=== PATIENT | female | born 1985 | race Caucasian/White ===

== ENCOUNTER 2019-02-13 19:33 | Emergency (ER) | payer MEDICAID ==
[~2019-02-13] VITALS: Ht 149.9 cm; Wt 63.0 kg
[~2019-02-13 19:33] MED LIST: FERR-212 PO; IBUP-2213 PO; PREN-508 PO
[2019-02-13 19:45] VITALS: BP 131/62
--- NOTE | 2019-02-13 20:08 | NUR ---
PT AMBULATED TO THE RESTROOM AND THEN TO [facility]
--- NOTE | 2019-02-13 20:36 | NUR ---
PT AMBULATED TO ER BED 01
--- NOTE | 2019-02-13 20:52 | NUR ---
US AT BEDSIDE.
--- NOTE | 2019-02-13 20:55 | NUR ---
33 YO F BIB SELF PRESENTS TO ED C/O VAGINAL BLEEDING WITH BLOOD CLOTS X 1 HOUR. HAS CHANGED PAD X 1. LOWER CRAMPING 7/10 ABD PAIN X 30 MINS. PT IS 15 WEEKS . DENIES HX OF MISCARRIAGE. . -- PT AWAKE, A/O X4, CALM, COOPERATIVE. ANSWERS QUESTIONS IN CLEAR, COMPLETE SENTENCES. BEHAVIOR AGE APPROPRIATE. -- SKIN PINK, WARM, DRY. BREATHING EVEN, UNLABORED. PMH-- DENIES RX-- FOLIC ACID LMP-- 05/19/18
--- NOTE | 2019-02-13 21:29 | NUR ---
DR. HARDY EVALUATING AT BEDSIDE.
[2019-02-13 21:42] LABS: HEMATOCRIT 34.6 % (36-48); HEMOGLOBIN 11.5 g/dL (12.0-16.0); MEAN CORPUSCULAR HEMOGLOBIN 28 pg (27-31); MEAN CORPUSCULAR HGB CONC 33 g/dL (33-37); MEAN CORPUSCULAR VOLUME 83.4 fL (80-94); PLATELET COUNT (AUTO) 269 K/uL (140-450); RED BLOOD CELL COUNT(AUTO) 4.15 MIL/uL (4.20-5.40); RED CELL DISTRIBUTION WIDTH 12.9 % (11.6-13.7); WHITE BLOOD COUNT (AUTO) 10.3 K/uL (4.8-10.8)
[2019-02-13 21:56] LABS: ANION GAP 15.2 (8-16); CARBON DIOXIDE 23.2 mmol/L (21-32); CREATININE 0.5 mg/dL (0.6-1.3); POTASSIUM 3.4 mmol/L (3.5-5.1)
[2019-02-13 22:02] LABS: ALBUMIN 3.7 g/dL (3.4-5.0); TOTAL BILIRUBIN 0.2 mg/dL (0.0-1.0)
[2019-02-13 22:14] LABS: APPEARANCE,URINE CLEAR (CLEAR); BILIRUBIN,URINE NEGATIVE (NEGATIVE); BLOOD, URINE 3+ (NEGATIVE); COLOR,URINE YELLOW (YELLOW); LEUKOCYTE ESTERASE ,URINE TRACE (NEGATIVE); NITRITE, URINE POSITIVE (NEGATIVE); PH,URINE 6.5 (5.0-9.0); UGLUCOSE NEGATIVE (NEGATIVE)
[2019-02-13 22:19] LABS: EOSINOPHILS % (MANUAL) 1 % (0-4); LYMPHOCYTES % (MANUAL) 32 % (20-46); MONOCYTES % (MANUAL) 5 % (5-12)
--- NOTE | 2019-02-13 22:35 | NUR ---
Female Sales Service Technician accompanied Dr. Chaudhary for female patient- Pelvic Exam.
[2019-02-13 22:54] LABS: RBC,URINE TOO NUMEROUS TO COUN /HPF (0-5); WBC,URINE 0-5 /HPF (0-5)
[2019-02-13] MEDS ORDERED: metroNIDAZOLE 250 MG TAB PO ONE (23:35)
--- NOTE | 2019-02-13 23:42 | NUR ---
PT SITTING WITH DAUGHTER ON BED LAUGHING, TALKING, WATCHING PHONE. VSS. SKIN PINK, WARM, DRY. BREATHING EVEN, UNLABORED. NO COMPLAINTS AT THIS TIME.
[2019-02-14 01:04] VITALS: BP 115/73
--- NOTE | 2019-02-14 01:04 | NUR ---
Patient discharged with v/s stable. Written and verbal after care instructions given and explained. Patient alert, oriented and verbalized understanding of instructions. Ambulatory with steady gait. All questions addressed prior to discharge. ID band removed. Patient advised to follow up with PMD. Rx of FLAGYL given. Patient educated on indication of medication including possible reaction and side effects. Opportunity to ask questions provided and answered.
[2019-02-16 06:07] LABS: CHLAMYDIA TRACHOMATIS AMP DNA Negative (Negative)
== END 2019-02-14 01:04 | disposition home or self-care (01) ==
LOC: MED 19:33
DX: O20.8 Other hemorrhage in early pregnancy (principal); O23.591 Infection of other part of genital tract in pregnancy, first trimester; B96.89 Other specified bacterial agents as the cause of diseases classified elsewhere; Z79.899 Other long term (current) drug therapy; Z3A.13 13 weeks gestation of pregnancy
CPT/HCPCS: 36415; 76817; 80053; 81001; 84702; 85025; 86900; 86901; 87210; 99284; Q0092; 87491

== ENCOUNTER 2019-04-10 14:08 | Emergency (ER) | payer MEDICAID ==
[~2019-04-10] VITALS: Ht 142.2 cm; Wt 63.5 kg
[2019-04-10 14:18] VITALS: BP 115/57
--- NOTE | 2019-04-10 14:18 | NUR ---
33/F PRESENTS TO ED, C/O COUGH, PLEURITIC CP AND BACK PAIN, X6 DAYS. PT REPORTS BEING 19 WEEKS . A0. PT AWAKE AND ALERT, SKIN NORMAL COLOR WARM AND DRY, RR EVEN AND UNLABORED. LUNG SOUNDS CLEAR BL. DENIES MED HX OR RX. OTC VITAMINS.
--- NOTE | 2019-04-10 14:28 | NUR ---
PT AMBULATED TO BED WITH SON AND DAUGHTER
[2019-04-10 15:48] VITALS: BP 137/73
--- NOTE | 2019-04-10 15:48 | NUR ---
Patient discharged with v/s stable. Written and verbal after care instructions given and explained. Patient alert, oriented and verbalized understanding of instructions. Ambulatory with steady gait. All questions addressed prior to discharge. ID band removed. Patient advised to follow up with PMD. Rx of AZITHROMYCIN/DM COUGH given. Patient educated on indication of medication including possible reaction and side effects. Opportunity to ask questions provided and answered.
== END 2019-04-10 15:48 | disposition home or self-care (01) ==
LOC: MED 14:08
DX: O99.512 Diseases of the respiratory system complicating pregnancy, second trimester (principal); J20.9 Acute bronchitis, unspecified; Z3A.19 19 weeks gestation of pregnancy
CPT/HCPCS: 99283

== ENCOUNTER 2019-07-16 01:05 | Inpatient (IN) | payer MEDICAID ==
[~2019-07-16] VITALS: Ht 149.9 cm; Wt 69.9 kg
[2019-07-16] MEDS ORDERED: LACTATED RINGERS 1,000 ML IV SCH (01:46)
[2019-07-16 01:50] VITALS: BP 119/59
[2019-07-16] MEDS ORDERED: CARBOPROST 250 MCG/ML AMP IM PRN (01:50)
[2019-07-16] MEDS ORDERED: METHYLERGONOVINE 0.2 MG/ML AMP IM PRN (01:50)
[2019-07-16 02:42] LABS: BASOPHILS # (AUTO) 0.1 K/uL (0.00-0.22); BASOPHILS % (AUTO) 1.1 % (0.0-2.0); EOSINOPHILS # (AUTO) 0.1 K/uL (0-0.4); EOSINOPHILS % (AUTO) 1.4 % (0.0-4.0); HEMATOCRIT 31.7 % (36-48); HEMOGLOBIN 10.7 g/dL (12.0-16.0); LYMPHOCYTES # (AUTO) 2.7 K/uL (2.5-16.5); LYMPHOCYTES % (AUTO) 34.1 % (20.5-51.1); MEAN CORPUSCULAR HEMOGLOBIN 29 pg (27-31); MEAN CORPUSCULAR HGB CONC 34 g/dL (33-37); MEAN CORPUSCULAR VOLUME 84.8 fL (80-94); MONOCYTES # (AUTO) 0.5 K/uL (0.8-1.0); MONOCYTES % (AUTO) 6.4 % (1.7-9.3); NEUTROPHILS # (AUTO) 4.6 K/uL (1.8-7.7); PLATELET COUNT (AUTO) 220 K/uL (140-450); RED BLOOD CELL COUNT(AUTO) 3.73 MIL/uL (4.20-5.40); RED CELL DISTRIBUTION WIDTH 13.5 % (11.6-13.7)
[2019-07-16 02:43] LABS: APPEARANCE,URINE CLEAR (CLEAR); BILIRUBIN,URINE NEGATIVE (NEGATIVE); BLOOD, URINE 1+ (NEGATIVE); COLOR,URINE YELLOW (YELLOW); LEUKOCYTE ESTERASE ,URINE NEGATIVE (NEGATIVE); NITRITE, URINE NEGATIVE (NEGATIVE); PH,URINE 6.5 (5.0-9.0); UGLUCOSE NEGATIVE (NEGATIVE)
[2019-07-16 02:53] LABS: ANION GAP 14.8 (8-16); CARBON DIOXIDE 22.3 mmol/L (21-32); CREATININE 0.6 mg/dL (0.6-1.3); POTASSIUM 4.1 mmol/L (3.5-5.1)
[2019-07-16 02:58] LABS: ALBUMIN 2.7 g/dL (3.4-5.0); TOTAL BILIRUBIN 0.3 mg/dL (0.0-1.0)
[2019-07-16 03:05] LABS: RBC,URINE 11-20 (MOD) /HPF (0-5); WBC,URINE 0-5 /HPF (0-5)
[2019-07-16] MEDS ORDERED: ceFAZolin 1,000 MG VIAL ONE (05:34)
[2019-07-16] MEDS ORDERED: BETAMETH ACET/BETAMETH NA PH 30 MG/5 ML VIAL IM ONE (05:58)
[2019-07-16] MEDS ORDERED: CITRIC ACID/SODIUM CITRATE 30 ML UDC PO ONE (06:00)
[2019-07-16] MEDS ORDERED: BETAMETH ACET/BETAMETH NA PH 30 MG/5 ML VIAL IM SCH (06:05)
[2019-07-16] MEDS ORDERED: MAG SULF 2000 MG/WATER PREMIX 50 ML IV ONE (06:25)
[2019-07-16] MEDS ORDERED: AMPICILLIN 2,000 MG VIAL ONE (06:32)
[2019-07-16] MEDS ORDERED: MAG SULF IV ONE (06:33)
[2019-07-16] MEDS ORDERED: [UNRECOGNIZED DRUG - OTHER] IV ONE (06:33)
[2019-07-16] MEDS ORDERED: AZITHROMYCIN 500 MG in DEXTROSE 5% 250 ML IV SCH (07:00)
[2019-07-16] MEDS ORDERED: AZITHROMYCIN 500 MG INJ VIAL IV ONE (07:11)
[2019-07-16] MEDS ORDERED: AMPICILLIN 2,000 MG in NACL 0.9% 100 ML IV SCH (08:00)
[2019-07-16] MEDS ORDERED: ERYTHROMYCIN 0.5% OPTH OINT 1 GM TUBE ONE (09:18)
== END 2019-07-16 07:50 | disposition short-term general hospital (02) | DRG 566 ==
LOC: MLD 01:05 → OBSVTOIN 01:05
PROVIDERS: ADMIT Obstetrics & Gynecology; ATTEND Obstetrics & Gynecology
DX: O42.013 Preterm premature rupture of membranes, onset of labor within 24 hours of rupture, third trimester (principal); O24.410 Gestational diabetes mellitus in pregnancy, diet controlled; Z3A.33 33 weeks gestation of pregnancy; Z91.19 Patient's noncompliance with other medical treatment and regimen
CPT/HCPCS: 36415; 80053; 81001; 85025; 86592; 86886; 86900; 86901; 87086; J0290; J0456; J0690; J0702; J3475; J7030; J7060; J7120

== ENCOUNTER 2019-11-29 19:22 | Inpatient (IN) | payer MEDICAID ==
[~2019-11-29] VITALS: Ht 137.2 cm; Wt 69.5 kg
[~2019-11-29 19:22] MED LIST changes: -FERR-212 PO; -IBUP-2213 PO
[2019-11-29 19:33] VITALS: BP 137/98
--- NOTE | 2019-11-29 19:37 | NUR ---
AMBULATED TO BED 5 WITH STEADY GAIT.
[2019-11-29] MEDS ORDERED: NACL 0.9% 1,000 ML IV ONE (19:50)
[2019-11-29] MEDS ORDERED: KETOROLAC 15 MG/ML VIAL IVP ONE (19:50)
[2019-11-29 20:20] LABS: BASOPHILS % (AUTO) 0.2 % (0.0-2.0); EOSINOPHILS # (AUTO) 0.1 K/uL (0-0.4); EOSINOPHILS % (AUTO) 0.5 % (0.0-4.0); HEMATOCRIT 39.1 % (36-48); HEMOGLOBIN 12.6 g/dL (12.0-16.0); LYMPHOCYTES % (AUTO) 16.1 % (20.5-51.1); MEAN CORPUSCULAR HEMOGLOBIN 26 pg (27-31); MEAN CORPUSCULAR HGB CONC 32 g/dL (33-37); MEAN CORPUSCULAR VOLUME 80.7 fL (80-94); MONOCYTES # (AUTO) 0.5 K/uL (0.8-1.0); MONOCYTES % (AUTO) 3.8 % (1.7-9.3); NEUTROPHILS # (AUTO) 9.8 K/uL (1.8-7.7); NEUTROPHILS % (AUTO) 79.4 % (42.2-75.2); PLATELET COUNT (AUTO) 256 K/uL (140-450); RED BLOOD CELL COUNT(AUTO) 4.84 MIL/uL (4.20-5.40); RED CELL DISTRIBUTION WIDTH 13.7 % (11.6-13.7); WHITE BLOOD COUNT (AUTO) 12.3 K/uL (4.8-10.8)
[2019-11-29 20:28] LABS: ANION GAP 17.1 (8-16); CARBON DIOXIDE 23.3 mmol/L (21-32); CREATININE 0.8 mg/dL (0.6-1.3); POTASSIUM 3.4 mmol/L (3.5-5.1)
[2019-11-29 20:33] LABS: ALBUMIN 4.4 g/dL (3.4-5.0); TOTAL BILIRUBIN 0.4 mg/dL (0.0-1.0)
--- NOTE | 2019-11-29 20:48 | NUR ---
Pt recieved at 2009 with c/o RUQ stabbing pain with nausea and vomiting. 22G IV lock to right forearm. Ultrasound at bedside, awaiting UA for CT. IVF infusing with no S/Sx infiltration.
--- NOTE | 2019-11-29 22:28 | NUR ---
Pt to CT and returned with no complicationsPt reports decreased pain level at this time s/p pain medication. Pain at this time06/13. Orders recieved from Dr Waterman. Pt aware of and agrees with plan of care.
[2019-11-29] MEDS ORDERED: ONDANSETRON 4 MG/2 ML VIAL IVP PRN (22:35)
[2019-11-29] MEDS ORDERED: LACTATED RINGERS 1,000 ML IV ONE (22:35)
[2019-11-29] MEDS: DEXT 5% /NACL 0.9% 1,000 ML IV SCH (22:41)
[2019-11-29] MEDS ORDERED: ONDANSETRON 4 MG/2 ML VIAL IM/IVP PRN (22:45)
[2019-11-29] MEDS ORDERED: HYDROcodone/APAP 7.5/325 MG 1 TAB PO PRN (22:45)
[2019-11-29] MEDS ORDERED: POTASSIUM CHLORIDE 10 MEQ TABER PO PRN (22:45)
[2019-11-29] MEDS ORDERED: LEVOFLOXACIN 750 MG/D5W PREMIX 150 ML IV SCH (22:45)
[2019-11-29] MEDS ORDERED: DOCUSATE SODIUM 100 MG GELCAP PO PRN (22:45)
[2019-11-29] MEDS ORDERED: ACETAMINOPHEN 325 MG TAB PO PRN (22:45)
[2019-11-29 23:07] LABS: APPEARANCE,URINE CLOUDY (CLEAR); BILIRUBIN,URINE NEGATIVE (NEGATIVE); BLOOD, URINE NEGATIVE (NEGATIVE); COLOR,URINE YELLOW (YELLOW); LEUKOCYTE ESTERASE ,URINE NEGATIVE (NEGATIVE); NITRITE, URINE NEGATIVE (NEGATIVE); UGLUCOSE NEGATIVE (NEGATIVE)
[2019-11-29 23:32] LABS: PROTHROMBIN TIME 9.9 secs (10.8-13.4)
[2019-11-29 23:36] LABS: CHOL/HDL RATIO 4.1 (1-4.5); FREE T4 (FREE THYROXINE) 1.2 ng/dL (0.76-1.46); MAGNESIUM 1.9 mg/dL (1.8-2.4); PHOSPHORUS 2.5 mg/dL (2.5-4.9); THYROID STIMULATING HORMONE 0.3 uIU/mL (0.34-3.74)
--- NOTE | 2019-11-29 23:40 | NUR ---
Pt resting with no acute distress at this time. Will continue to monitor.
[2019-11-29 23:54] LABS: BARBITURATE, URINE NEGATIVE ng/ml (NEG <=200); BENZODIAZEPINE, URINE NEGATIVE ng/mL (NEG <=200); CANNABINOID, URINE NEGATIVE ng/mL (NEG <=50); COCAINE, URINE NEGATIVE ng/mL (NEG <=300); OPIATE, URINE NEGATIVE ng/mL (NEG <=2000); PHENCYCLIDINE SCREEN,URINE NEGATIVE ng/mL (NEG <=25)
--- NOTE | 2019-11-30 00:04 | NUR ---
Attempted to call after hour pharmacy to clarify ABX order [phone] passcode [id number]. Passcode [id number] invalid, preload supervisor notified of invalid passcode. Was advised by Tita SOTOphysical testing supervisor to start ABX as scheduled by both surgon and admit MD. Pt scheduled for 729 surgery, Dr Watermanordered Zosyn 3.375G IVPB Q6 hours, pharmacy schedules at 0000, 0600. Admitting MD Dr Rodriguez ordered Levaquin 750mg IVPB Q2Days, pharmacy schedules first dose at 2300 11-29-19.
[2019-11-30] MEDS ORDERED: PIPERACILLIN/TAZOBACTAM 3.375 GM VIAL IV ONE (00:33)
[2019-11-30] MEDS: PIPERACILLIN/TAZOBACTAM 3.375 GM in DEXTROSE 5% 50 ML IV SCH ×4 (00:51→18:19)
[2019-11-30] MEDS: HYDROmorphone PFS 2 MG/ML SYR IVP PRN ×3 (00:54→21:04)
--- NOTE | 2019-11-30 00:56 | NUR ---
Pt medicated for pain per MD order, see eMAR for details.
--- NOTE | 2019-11-30 02:39 | NUR ---
Pt resting with no acute distress noted, VSS, IV ABX infusing with no adverse reaction noted, will continue to monitor.
[2019-11-30 04:28] LABS: BASOPHILS % (AUTO) 0.2 % (0.0-2.0); EOSINOPHILS % (AUTO) 0.1 % (0.0-4.0); HEMATOCRIT 37.3 % (36-48); LYMPHOCYTES % (AUTO) 17.1 % (20.5-51.1); MEAN CORPUSCULAR HEMOGLOBIN 26 pg (27-31); MEAN CORPUSCULAR HGB CONC 32 g/dL (33-37); MEAN CORPUSCULAR VOLUME 81.6 fL (80-94); MONOCYTES # (AUTO) 1.1 K/uL (0.8-1.0); MONOCYTES % (AUTO) 9.5 % (1.7-9.3); NEUTROPHILS # (AUTO) 8.7 K/uL (1.8-7.7); NEUTROPHILS % (AUTO) 73.1 % (42.2-75.2); PLATELET COUNT (AUTO) 229 K/uL (140-450); RED BLOOD CELL COUNT(AUTO) 4.57 MIL/uL (4.20-5.40); RED CELL DISTRIBUTION WIDTH 13.5 % (11.6-13.7); WHITE BLOOD COUNT (AUTO) 11.9 K/uL (4.8-10.8)
[2019-11-30 04:47] LABS: ANION GAP 16.7 (8-16); CARBON DIOXIDE 25.2 mmol/L (21-32); CREATININE 0.8 mg/dL (0.6-1.3); POTASSIUM 3.9 mmol/L (3.5-5.1)
--- NOTE | 2019-11-30 05:09 | NUR ---
Pt ambulated to BR with steady gait, c/o pain8/, pt medicated per MD order, see eMAR for details.
[2019-11-30] MEDS ORDERED: BUPIVACAINE-MPF 0.25% 30 ML VIAL INJ ONE (07:07)
--- NOTE | 2019-11-30 07:20 | NUR ---
REPORT RECEIVED FROM BOBBI SOTO, TRANSFER OF CARE AT THIS TIME
--- NOTE | 2019-11-30 07:20 | NUR ---
PT RESTING WITH EYES CLOSED, BREATHING EVEN AND UNLABORED. NO DISTRESS NOTED. WILL CONTINUE TO MONITOR.
--- NOTE | 2019-11-30 07:33 | NUR ---
OR TEAM HAS TAKEN PT.
[2019-11-30] MEDS ORDERED: ROCURONIUM 50 MG/5 ML VIAL IV ONE (07:37)
[2019-11-30] MEDS ORDERED: SUCCINYLCHOLINE CHLORIDE 200 MG/10 ML VIAL IVP ONE (07:37)
[2019-11-30] MEDS ORDERED: HYDROmorphone PFS 2 MG/ML SYR ONE (07:37)
[2019-11-30] MEDS ORDERED: DEXAMETHASONE 4 MG/ML VIAL ONE (07:37)
[2019-11-30] MEDS ORDERED: fentaNYL citrate 0.05 MG/ML VIAL ONE (07:37)
[2019-11-30] MEDS ORDERED: KETOROLAC 30 MG/ML VIAL ONE (07:37)
[2019-11-30] MEDS ORDERED: ONDANSETRON 4 MG/2 ML VIAL ONE (07:37)
[2019-11-30] MEDS ORDERED: DESFLURANE 240 ML BTL INH ONE (07:37)
[2019-11-30] MEDS ORDERED: PROPOFOL 200 MG/20 ML VIAL IV ONE (07:37)
[2019-11-30] MEDS ORDERED: BUPIVACAINE-MPF/EPI 0.25% 30 ML VIAL INJ ONE (07:39)
--- NOTE | 2019-11-30 09:02 | NUR ---
PATIENT HAS BEEN SCREENED AND CATEGORIZED LOW NUTRITION RISK. PATIENT WILL BE SEEN WITHIN 7 DAYS OF ADMISSION. 12/06/[address]
[2019-11-30] MEDS ORDERED: ONDANSETRON 4 MG/2 ML VIAL IVP PRN (09:50)
[2019-11-30] MEDS ORDERED: HYDROmorphone 1 MG/ML AMP IVP PRN (09:50)
[2019-11-30 10:50] VITALS: BP 114/72
--- NOTE | 2019-11-30 10:50 | NUR ---
RECEIVED REPORT FROM EMERGENCY ROOM NURSE FOR CONTINUITY OF CARE. PATIENT IN STABLE CONDITION. RESPIRATIONS EVEN AND UNLABORED, ROOM AIR. IV INTACT AND PATENT. SAFETY MEASURES IN PLACE. BED IN LOW POSITION. BED ALARM ON. CALL LIGHT WITHIN REACH. WILL CONTINUE TO MONITOR.
[2019-11-30] MEDS: DEXT 5% /NACL 0.9% 1,000 ML IV SCH (12:06)
--- NOTE | 2019-11-30 12:41 | NUR ---
PATIENT SLEEPING AT THIS TIME. RESPIRATIONS EVEN AND UNLABORED. BED IN LOW POSITION. CALL LIGHT WITHIN REACH. WILL CONTINUE TO MONITOR.
--- NOTE | 2019-11-30 13:55 | NUR ---
GAVE REPORT TO DAY SHIFT NURSE FOR CONTINUITY OF CARE. PATIENT IN STABLE CONDITION.
--- NOTE | 2019-11-30 13:55 | NUR ---
RECEIVED REPORT FROM BRITTANY ADDISON FOR CONTINUITY OF CARE. PATIENT ALERT AWAKE OPRIENTED X4, NOT IN DISTRESS NOTED. WITH IVF ON GOING AND INFUSING WELL. WILL CONTINUE TO MONITOR.
[2019-11-30 17:08] VITALS: BP 124/70
--- NOTE | 2019-11-30 18:38 | NUR ---
PATIENT RESTING IN BED, TOLERATING THE DISET, COMPLAINED OF SURGICAL SITE PAIN MEDICATED.
--- NOTE | 2019-11-30 19:20 | NUR ---
REPORT GIVEN TO OMNTSE ESCOBAR FOR CONTINUITY OF CARE, IN STABLE CONDITION.
[2019-11-30 20:00] VITALS: BP 115/73
--- NOTE | 2019-11-30 20:00 | NUR ---
A/A/O X4.POLISH SPEAKING .SPEAKS LITTLE NIGERIEN. IVF D5NS @ 90 ML/HR INFUSING WELL.ADB X4 SURGICAL INCISION WITH DERMABOND.DENIES ANY DISCOMFORT @ THIS TIME. INSTRUCTED TO USE CALL LIGHT NEEDED;WITHIN REACH.
--- NOTE | 2019-11-30 21:05 | NUR ---
C/O INCISIONAL PAIN SCALE 10/10.DILAUDID IV ADM.
--- NOTE | 2019-11-30 21:35 | NUR ---
FOUND RESTING COMFORTABLY IN NO ACUTE DISTRESS POST DILAUDID.
[2019-12-01] VITALS: BP 113/65
[2019-12-01] MEDS: PIPERACILLIN/TAZOBACTAM 3.375 GM in DEXTROSE 5% 50 ML IV SCH ×3 (00:49→11:29)
[2019-12-01] MEDS: DEXT 5% /NACL 0.9% 1,000 ML IV SCH ×2 (00:54→08:02)
--- NOTE | 2019-12-01 02:00 | NUR ---
ASELLEP IN NO ACUTE DISTRESS.CALL LIGHT WITHIN REACH.
--- NOTE | 2019-12-01 04:00 | NUR ---
RESTING COMFORTABLY IN NO ACUTE DISTRESS.IVF INFUSING WELL.
[2019-12-01 06:15] LABS: BASOPHILS % (AUTO) 0.3 % (0.0-2.0); EOSINOPHILS % (AUTO) 0.4 % (0.0-4.0); HEMATOCRIT 31.3 % (36-48); HEMOGLOBIN 10.3 g/dL (12.0-16.0); LYMPHOCYTES # (AUTO) 2.5 K/uL (2.5-16.5); LYMPHOCYTES % (AUTO) 25.3 % (20.5-51.1); MEAN CORPUSCULAR HEMOGLOBIN 27 pg (27-31); MEAN CORPUSCULAR HGB CONC 33 g/dL (33-37); MEAN CORPUSCULAR VOLUME 82.3 fL (80-94); MONOCYTES # (AUTO) 0.8 K/uL (0.8-1.0); MONOCYTES % (AUTO) 8.5 % (1.7-9.3); NEUTROPHILS # (AUTO) 6.4 K/uL (1.8-7.7); NEUTROPHILS % (AUTO) 65.5 % (42.2-75.2); PLATELET COUNT (AUTO) 181 K/uL (140-450); RED CELL DISTRIBUTION WIDTH 13.8 % (11.6-13.7); WHITE BLOOD COUNT (AUTO) 9.8 K/uL (4.8-10.8)
--- NOTE | 2019-12-01 06:45 | NUR ---
ENDORSED A/A/ OX4.DENIES ANY DISCOMFORT @ THIS TIME.IVF INFUSING WELL. CALL LIGHT WITHIN REACH.SAFETY MAINTAINED.
[2019-12-01 07:06] LABS: ALBUMIN 3.1 g/dL (3.4-5.0); ANION GAP 12.8 (8-16); CARBON DIOXIDE 25.7 mmol/L (21-32); CREATININE 0.7 mg/dL (0.6-1.3); POTASSIUM 3.5 mmol/L (3.5-5.1); TOTAL BILIRUBIN 0.6 mg/dL (0.0-1.0)
--- NOTE | 2019-12-01 07:20 | NUR ---
SHIFT REPORT RECEIVED FROM [facility] [employer] DRIVER NURSE. PT IS LYING IN BD AND RESPONSIVE. IV IN PLACE. NO COMPLAINS OF PAIN. NO DISTRESS NOTED. BED IN LOW POSITION. CALL LIGHT IN REACH.
[2019-12-01 08:00] VITALS: BP 114/53
[2019-12-01 08:13] LABS: T4 (THYROXINE) 8.5 ug/dL (4.5-12.0)
--- NOTE | 2019-12-01 08:41 | NUR ---
LATE ENTRY- NS 0.9% DISCONTINUED AT 0730.
--- NOTE | 2019-12-01 09:30 | NUR ---
PT IS SITTING IN BED. PT EARLIER AMBULATED TO BATHROOM. NO COMPLAINS OF PAIN. NO DISTRESS. MEDS GIVEN. WILL MONITOR. CALL LIGHT IN RERACH.
--- NOTE | 2019-12-01 11:30 | NUR ---
PT IS SITTING IN BED. PT EARLIER AMBULATED TO BATHROOM. NO COMPLAINS OF PAIN. NO DISTRESS. MEDS GIVEN. WILL MONITOR. CALL LIGHT IN REACH.
[2019-12-01] MEDS ORDERED: IBUP-1842 PO (12:19)
[2019-12-01] MEDS ORDERED: ACET325C8 PO (12:19)
--- NOTE | 2019-12-01 14:30 | NUR ---
PT WAS DISCHARGED TO HOME TODAY. DISCHARGE INSTRUCTIONS GIVEN TO PT. MEDS SENT TO PHARMACY. PT STABLE AT DISCHARGE. SKIN INTACT BUT WITH INCISION. PHOTO TAKEN. NO COMPLAINS OF PAIN. ID BAND REMOVED. IV REMOVED. BELONGINGS WITH PT. PT'S DAUGHTER PICKED UP PT. PT WILL F/U WITH PCP UPON D/C.
== END 2019-12-01 14:54 | disposition home or self-care (01) | DRG 263 ==
LOC: MED 19:22 → MMU 22:44 → MTU 11-30 07:30
PROVIDERS: ADMIT Family Medicine; ATTEND Family Medicine
PROC: 0FT44ZZ Resection of Gallbladder, Percutaneous Endoscopic Approach (ICD-10-PCS; principal; 2019-11-30 07:30)
DX: K80.00 Calculus of gallbladder with acute cholecystitis without obstruction (principal); E87.0 Hyperosmolality and hypernatremia; E87.6 Hypokalemia; E78.2 Mixed hyperlipidemia; N28.1 Cyst of kidney, acquired; K76.0 Fatty (change of) liver, not elsewhere classified; D72.829 Elevated white blood cell count, unspecified; E66.9 Obesity, unspecified; Z68.37 Body mass index [BMI] 37.0-37.9, adult; Z86.32 Personal history of gestational diabetes; Z98.891 History of uterine scar from previous surgery
CPT/HCPCS: 36415; 71045; 76705; 80048; 80053; 80305; 81003; 82150; 83036; 83690; 83735; 83880; 84100; 84436; 84439; 84443; 84479; 84484; 85025; 85610; 85730; 86886; 86900; 86901; 87081; 96361; 96374; 99285; J0330; J1100; J1170; J1885; J1956; J2405; J2543; J2704; J3010; J3490; J7030; J7042; J7060; Q0092